=== PATIENT | male | born 1960 | race Caucasian/White ===

== ENCOUNTER → 2020-03-15 12:20 | Outpatient (BNVA) | payer OTHER, SELFPAY | PROVIDERS: Visit Provider Nurse Practitioner Family | DX: I10 Essential (primary) hypertension (principal) | CPT/HCPCS: 80053; 80061; 82607; 85025; G0103 ==

== ENCOUNTER → 2020-08-08 08:51 | Outpatient (BNVA) | payer OTHER, SELFPAY | PROVIDERS: Visit Provider Nurse Practitioner Family | DX: M25.511 Pain in right shoulder (principal) | CPT/HCPCS: 73030 ==

== ENCOUNTER 2020-08-21 08:18 | Outpatient (CLI) | payer OTHER, SELFPAY ==
--- NOTE | 2020-08-21 08:38 | MR_ITS ---
WS: [id number] MRI RIGHT SHOULDER HISTORY: M25.511 Pain in right shoulder COMPARISON: 08/08/2020 radiographs. TECHNIQUE: Multiplanar sequences of the shoulder joint are submitted. Moderate AC joint arthritis. Narrowing of the AC joint with osteophytes extending superior and inferi or from the joint. Increased soft tissue at the AC joint. Small amount of fluid in the subacromial an d subdeltoid bursa. 4 mm osteophyte along the inferior lateral surface of the acromion with significa nt encroachment upon the supraspinatus muscle and tendon. Moderate amount of edema in the posterior, superior lateral humeral head. No definite fracture is edgard ntified. There is significant loss of cartilage over the humeral head. Humeral head is moderately hig h riding from the glenoid. There is marked narrowing of the acromial humeral space. Partial tear along the articular surface of the supraspinatus tendon. A very small amount of the tendon remains. Infraspinatus tendon is intact. There is significant tendinopathy within the infraspinatus and supraspinatus tendons. Marked thickeni ng over the distal 3 to 4 cm of each tendon. The distal subscapularis tendon appears to be completely torn and retracted slightly. There is mild waviness of the subscapularis tendon and narrowing of the coracohumeral interval. Biceps tendon is torn and dislocated. No biceps tendon at the bicipital groo ve. There is a large amount of fluid surrounding the humeral head. Middle glenohumeral ligament is no t identified and probably torn and retracted. Anterior superior labrum is small caliber with increase d T2 signal. MR/MR shoulder RT wo con* [id number] IMPRESSION: 1. Large effusion surrounding the humeral head with marrow edema in the road monkey ior lateral humeral head. No definite fracture. 2. Moderate loss of cartilage at the glenohumeral joint and surrounding the hu meral head with osteophytes from chronic osteoarthritis. 3. Partial tear supraspinatus tendon over the humeral head involving the artic ular surface. There is an additional complete tear with retraction of the subsc apularis tendon. 4. Marked tendinopathy in the distal supraspinatus and infraspinatus tendons. 5. Torn and probably dislocated biceps tendon. 6. Middle glenohumeral ligament is not identified in its normal position there fore probably torn and retracted. 7. Marked narrowing of the coracohumeral and acromial humeral spaces. 8. Moderate AC joint arthritis.
== END 2020-08-21 08:19 | disposition home or self-care (01) ==
LOC: RADWPI 08:24
PROVIDERS: PCP Nurse Practitioner Family; Visit Provider Nurse Practitioner Family
DX: M25.411 Effusion, right shoulder (principal); M75.111 Incomplete rotator cuff tear or rupture of right shoulder, not specified as traumatic; S46.211A Strain of muscle, fascia and tendon of other parts of biceps, right arm, initial encounter; X58.XXXA Exposure to other specified factors, initial encounter; M13.811 Other specified arthritis, right shoulder
CPT/HCPCS: 73221

== ENCOUNTER 2020-09-11 06:00 | Outpatient (RCR) | payer OTHER, SELFPAY | END 2020-09-28 23:59 | disposition home or self-care (01) | LOC: TPT 06:00 | PROVIDERS: PCP Nurse Practitioner Family; Referring Provider Orthopaedic Surgery; Visit Provider Orthopaedic Surgery | DX: M75.101 Unspecified rotator cuff tear or rupture of right shoulder, not specified as traumatic (principal) | CPT/HCPCS: 97110; 97140; 97161 ==

== ENCOUNTER 2020-09-29 06:00 | Outpatient (RCR) | payer OTHER, SELFPAY | END 2020-10-28 23:59 | disposition home or self-care (01) | LOC: TPT 06:00 | PROVIDERS: PCP Nurse Practitioner Family; Referring Provider Orthopaedic Surgery; Visit Provider Orthopaedic Surgery | DX: M75.101 Unspecified rotator cuff tear or rupture of right shoulder, not specified as traumatic (principal) | CPT/HCPCS: 97110 ==

== ENCOUNTER → 2021-09-23 14:41 | Outpatient (BNVA) | payer OTHER, SELFPAY | PROVIDERS: PCP Nurse Practitioner Family; Visit Provider Nurse Practitioner Family | DX: R05.9 Cough, unspecified (principal); J98.8 Other specified respiratory disorders; R06.02 Shortness of breath; G62.9 Polyneuropathy, unspecified; I10 Essential (primary) hypertension; R91.8 Other nonspecific abnormal finding of lung field | CPT/HCPCS: 71046; 80053; 80061; 85025 ==

== ENCOUNTER 2021-11-11 12:22 | Outpatient (CLI) | payer OTHER, SELFPAY ==
[2021-11-11 12:57] VITALS: BMI 24.3
--- NOTE | 2021-11-11 12:58 | ECG_ITS ---
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 Interpretive Statements NAME OF STUDY: TREADMILL STRESS ECHOCARDIOGRAM INDICATION: Abnormal stress test, PROCEDURE: The baseline electrocardiogram showed normal sinus rhythm with a poor R wave progression. At the baseline, the patient's blood pressure was 176/98 mm Hg with a heart rate of 67. The patient exercised for 6 minutes and 6 seconds on a standard Ralph protocol. Patient attained a maximum heart rate of 143 beats per minute(90% of the maximum predicted heart rate) with a blood pressure at the peak exercise of mm Hg. The EKG at the peak exercise revealed nonspecific ST T changes and exercise-induced PVCs. Patient did [not have any chest pain with exercise the echocardiographic pictures were taken at the baseline, immediate post exercise and during the recovery phase, at the standard views. During the recovery phase, there were no new changes. Blood pressure at the end of the recovery phase was 163/95 mm Hg with a heart rate of 81 per minute. CONCLUSION: 1. No significant EKG changes with the treadmill exercise 2. No exercise-induced chest pain or cardiac arrhythmia 3. Impaired exercise tolerance, attained a maximum of 7.0 METs 4. Echocardiographic pictures were taken at the standard views; see separate report. Electronically Signed On 11-14-2021 1:52:16 ASSISTANT SERVICE MANAGER by Pilo Ruth M.D. [id number]
--- NOTE | 2021-11-11 13:30 | USCV_ITS ---
Stress Echo Sanjeev Lou Age: 61 Gender: M : 1960 Exam Date: 11/11/2021 13:15 Ordering Phys: Pilo Ruth MD ([email or web address]) Technologist: Jerri Machado Exam Location: [facility] [place] Indication: abnormal stress test/htn Rhythm: Sinus Patient History: abnormal ekg/htn Cardiac Medications: Medications in past 24 hours: lisinopril Contrast: Stress Results Protocol: Ralph Total dose(mL): Exercise Duration (min:sec): 6:06 METS: 7 Resting HR: 67 Resting BP: 176 / 96 Peak HR: 143 Peak BP: 214 / 124 Max Predicted HR: 158 91 % Max Predicted HR Target HR: 134 Double Product: 18750 Stress Summary: The patient exhibited a hypertensive response with stress BP Response: Normal Reason for Termination: Test terminated after reaching target heart rate (85% max predicted), Maximal effort/unable to continue Cardiac Symptoms: None ECG Analysis Resting ECG: Please see separate report Stress ECG: Please see separate report Arrhythmia: Please see separate report MEASUREMENTS (Male/Female) Normal Values FINDINGS Baseline echocardiogram revealed normal LV size and ejection fraction of. Mild concentric left ventricular hypertrophy. No gross wall motion normalities. Normal left atrial size. With the peak exercise, there is good augmentation of all the segments with no exercise-induced wall motion normalities. During the recovery phase, the echocardiogram revealed no new changes. CONCLUSIONS Normal echocardiographic response to treadmill exercise. No significant coronary ischemia, based on the above findings. For the EKG response to exercise, please see separate report Dr Pilo Ruth MD [facility] (Electronically Signed) Final Date: 12 November 2021 21:26 S
[2021-11-11 13:38] VITALS: BP 163/95; PULSE 80
== END 2021-11-11 12:23 | disposition home or self-care (01) ==
LOC: CDL 12:23
PROVIDERS: PCP Nurse Practitioner Family; Visit Provider Internal Medicine Cardiovascular Disease
DX: R94.31 Abnormal electrocardiogram [ECG] [EKG] (principal); I10 Essential (primary) hypertension
CPT/HCPCS: 93017; 93350

== ENCOUNTER 2023-10-06 13:34 | Emergency (ER) | payer SELFPAY ==
--- NOTE | 2023-10-06 13:35 | XR_ITS ---
WS: [id number] Portable AP upright chest, 10/06/2023 Clinical Data: cp Comparison: 2 view chest, 09/23/2021 Findings: No nodules, masses or effusions are seen. The heart is normal. The pulmonary vascularity is not increased. No pneumonia or pneumothorax is seen. The aortic arch shows mild tortuosity. Impression: Atherosclerosis.
[2023-10-06 13:44] VITALS: BP 157/118; PULSE 96; RESP 17; TEMP 37.1; O2SAT 98; BMI 22.8
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
[2023-10-06 14:00] VITALS: BP 144/98; PULSE 80; O2SAT 99
[2023-10-06 14:36] LABS: Basophils # 0.1 10^3/uL (0.0-0.1); Basophils % 1.4 %; Eosinophils % 0.9 %; Hematocrit 44.5 % (37-53); Lymphocytes # 0.6 10^3/uL (0.8-4.8); Lymphocytes % 14.8 %; Mean Corpuscular Hemoglobin 32.5 pg (27-33); Mean Corpuscular Volume 90.4 fl (82-101); Monocytes # 0.3 10^3/uL (0.2-0.9); Monocytes % 7.7 %; Neutrophils # 3.22 10^3/uL (1.8-7.7); Neutrophils % 74.7 %; Nucleated Red Blood Cells % 0 %; Platelet Count 175 10^3/cmm (157-399); Red Blood Count 4.92 10^6/uL (3.85-5.65); Red Cell Distribution Width 13.2 % (12.1-15.1); White Blood Count 4.31 10^3/uL (3.29-11.43)
[2023-10-06 14:43] LABS: Alanine Aminotransferase 108 U/L (0-41); Alkaline Phosphatase 169 U/L (40-130); Aspartate Amino Transferase 171 U/L (0-40); Blood Urea Nitrogen 18 mg/dL (8-23); Calcium 8.8 mg/dL (8.5-10.5); Carbon Dioxide 30 mmol/L (22-29); Chloride 91 mmol/L (98-107); Globulin 2.7 g/dL (1.3-4.6); Glomerular Filtration Rate 43.7 mL/min (90-130); Glucose 142 mg/dL (65-115); Lipase 91 U/L (13-60); Magnesium 1.4 mg/dL (1.7-2.3); Osmolality Calculated 280 mOsm/kg (285-295); Sodium 133 mmol/L (136-145); Total Bilirubin 1.2 mg/dL (0.15-1.2); Total Protein 6.7 g/dL (6.6-8.7); Troponin(5th) Baseline 14 ng/L (0-15)
[2023-10-06] MEDS: sodium chloride 0.9% 1,000 ML 999 ML IV (14:43)
[2023-10-06] MEDS: LORazepam 2 mg/mL INJ 1 mL 1 MG IVP (14:43)
[2023-10-06 14:55] LABS: Bilirubin Urine 1+ (Negative); Blood Urine Neg (Negative); Glucose Urine UA Norm (Normal); Ketones Urine 1+ (Negative); Nitrate Urine Negative (Negative); Protein Urine Trace (Negative); Urine Appearance Clear (CLEAR); Urine Color Dark Yellow (Yellow); pH Urine 5 (5-7)
[2023-10-06 14:56] LABS: Add Urine Microscopic? YES; Leukocyte Esterase Urine Negative (Negative); Urobilinogen Urine 4 mg/dL (Negative)
[2023-10-06 15:06] LABS: Amorphous Sediment Urine TRACE /hpf; Bacteria Urine TRACE /hpf; Calcium Oxalate Crystals Urine 0-4 /hpf; Hyaline Casts Urine TOO NUMEROUS TO CNT /lpf; Mucus Urine 1+ /hpf; RBC Urine 0-4 /hpf (0-2); Squamous Epithelial Cell Urine RARE /hpf (0-5); WBC Urine 0-4 /hpf (0-5)
[2023-10-06 15:07] LABS: Add Urine Culture? No
[2023-10-06] MEDS: potassium chloride ER 20 mEq Tablet 40 MEQ PO (15:12)
[2023-10-06] MEDS: magnesium sulfate premix 2 GM/50 ML PIGGYBACK IV (15:14)
[2023-10-06 15:17] VITALS: BP 162/108; PULSE 78; O2SAT 99
--- NOTE | 2023-10-06 15:35 | ECG_ITS ---
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 Measurements Intervals [place] Rate: 80 P: 30 ID: [id number] QRS: -18 QRSD: 97 T: 51 QT: 400 QTc: 462 Interpretive Statements SINUS RHYTHM NONSPECIFIC T-WAVE ABNORMALITY Poor R wave progression No previous ECG available for comparison Electronically Signed On 10-07-2023 0:52:57 QUANTITATIVE RESEARCHER by Pilo Ruth M.D. [id number]
[2023-10-06 16:20] VITALS: BP 151/101; PULSE 80; O2SAT 100
[2023-10-06 16:34] LABS: Troponin 5 2HR 12.31 ng/L (0-15); Troponin 5 2HR Delta -1.69 ABS# (0-10)
== END 2023-10-06 16:39 | disposition home or self-care (01) ==
PROVIDERS: Emergency Medicine; Emergency Provider Nurse Practitioner Family; PCP Nurse Practitioner Family
DX: K85.20 Alcohol induced acute pancreatitis without necrosis or infection (principal); F10.10 Alcohol abuse, uncomplicated; E83.42 Hypomagnesemia; E86.0 Dehydration; I10 Essential (primary) hypertension; F17.210 Nicotine dependence, cigarettes, uncomplicated; J44.9 Chronic obstructive pulmonary disease, unspecified
CPT/HCPCS: 36415; 71045; 80053; 81001; 83690; 83735; 84484; 85025; 85610; 93005; 96365; 96375; 99285; J2060; J3475; J7030

== ENCOUNTER 2024-08-26 20:44 | Emergency (ER) | payer MEDICARE, MEDICAID, SELFPAY ==
--- NOTE | 2024-08-26 20:52 | XRR_ITS ---
PROCEDURE INFORMATION: Exam: XR Chest Exam date and time: 08/26/2024 9:14 PM Age: 64 years old Clinical indication: Other: Hemoptysis TECHNIQUE: Imaging protocol: Radiologic exam of the chest. Views: 1 view. COMPARISON: CR XR chest 1V portable [id number] 10/06/2023 2:44 PM FINDINGS: Lungs: Unremarkable. No consolidation. Pleural spaces: Unremarkable. No pleural effusion. No pneumothorax. Heart/Mediastinum: Unremarkable. No cardiomegaly. Bones/joints: Unremarkable. XR/XR chest 1V portable [id number] IMPRESSION: No acute findings.
[2024-08-26 20:56] VITALS: BP 195/95; PULSE 70; RESP 16; TEMP 36.8; O2SAT 97; BMI 22.9
[2024-08-26 21:14] LABS: Basophils # 0.1 10^3/uL (0.0-0.1); Basophils % 1.8 %; Eosinophils # 0.1 10^3/uL (0.0-0.8); Eosinophils % 2.3 %; Hematocrit 38.4 % (37-53); Lymphocytes # 1.3 10^3/uL (0.8-4.8); Lymphocytes % 29.3 %; Mean Corpuscular HGB Conc 33.3 g/dL (30-55); Mean Corpuscular Hemoglobin 33.2 pg (27-33); Mean Corpuscular Volume 99.7 fl (82-101); Mean Platelet Volume 9.3 fL (7.4-10.4); Monocytes # 0.5 10^3/uL (0.2-0.9); Monocytes % 12.3 %; Neutrophils # 2.38 10^3/uL (1.8-7.7); Neutrophils % 54.1 %; Nucleated Red Blood Cells % 0 %; Platelet Count 245 10^3/cmm (157-399); Red Blood Count 3.85 10^6/uL (3.85-5.65); Red Cell Distribution Width 15.5 % (12.1-15.1)
[2024-08-26 21:33] LABS: INR 0.96 (0.8-1.2)
[2024-08-26 21:38] LABS: Alanine Aminotransferase 33 U/L (0-41); Albumin Level 3.8 g/dL (3.5-5.2); Alkaline Phosphatase 110 U/L (40-130); Blood Urea Nitrogen 14 mg/dL (8-23); Calcium 8.9 mg/dL (8.5-10.5); Carbon Dioxide 25 mmol/L (22-29); Chloride 104 mmol/L (98-107); Glomerular Filtration Rate 84.7 mL/min (90-130); Glucose 93 mg/dL (65-115); Osmolality Calculated 286 mOsm/kg (285-295); Sodium 138 mmol/L (136-145); Total Bilirubin 0.3 mg/dL (0.15-1.2); Total Protein 6.8 g/dL (6.6-8.7)
[2024-08-26 21:46] LABS: Anion Gap 13.5 (5-19); Aspartate Amino Transferase 40 U/L (0-40); Potassium 4.5 mmol/L (3.5-5.1)
--- NOTE | 2024-08-26 22:10 | CTR_ITS ---
PROCEDURE INFORMATION: Exam: CT Neck With Contrast Exam date and time: 08/26/2024 10:24 PM Age: 64 years old Clinical indication: Dysphagia / difficulty swallowing and other: Coughing up blood, feels somethng in throat; Additional info: Coughing up blood, feeling of something in throat TECHNIQUE: Imaging protocol: Computed tomography of the neck with contrast. Radiation optimization: All CT scans at this facility use at least one of these dose optimization techniques: automated exposure control; mA and/or kV adjustment per patient size (includes targeted exams where dose is matched to clinical indication); or iterative reconstruction. Contrast material: OMNI 350; Contrast volume: 100 ml; Contrast route: INTRAVENOUS (IV); COMPARISON: CR (CHEST, ) 08/26/2024 9:14 PM RADIATION DOSE METRICS: Total DLP (mGy-cm): 288.4 FINDINGS: Salivary glands: Normal. Glands are normal in size. Teeth: Patient is edentulous. Pharynx: Unremarkable. No significant tonsillar enlargement. Prevertebral and retropharyngeal spaces: Unremarkable. Larynx: Unremarkable. Epiglottis is normal. Thyroid: 0.9 cm hypoattenuating nodule in the left thyroid. Trachea: Visualized trachea is unremarkable. Lungs: Visualized lung apices are clear. Lymph nodes: No distinct pathologically enlarged lymphadenopathy. Bones/joints: No acute osseous findings. Soft tissues: Visualized superficial soft tissues are within normal limits. CT/CT neck w con* [id number] IMPRESSION: No acute pathologic findings. COMMENTS: Consistent with the [employer]'s Incidental Findings Committee white paper (J Am Rhonda Radiol 2015): In patients aged 35 years and older with an incidental thyroid nodule equal to or greater than 1.[address], MRI or extrathyroidal US, further evaluation with dedicated thyroid US is recommended for patients with normal life expectancy and without comorbidities. For smaller nodules without suspicious features, no further evaluation or follow up is recommended.
[2024-08-26] MEDS: iohexol 350 mg/mL 500 mL Btl (per mL) IV (22:29)
[2024-08-27] MEDS: amoxicillin-clav 875-125 mg Tablet 1 TAB PO (00:54)
[2024-08-27] MEDS: guaiFENesin-codeine UDC 10 mL PO (00:54)
[2024-08-27 01:01] VITALS: BP 212/118; PULSE 75; O2SAT 97
[2024-08-27 01:03] VITALS: BP 202/110
[2024-08-27] MEDS: lisinopril 10 mg Tablet PO (01:03)
[2024-08-27] MEDS: cloNIDine 0.1 mg Tablet 0.2 MG PO (01:03)
[2024-08-27 01:07] VITALS: BP 202/110; PULSE 75; O2SAT 97
--- NOTE | 2024-08-27 07:21 | ED_ITS ---
HPI - URI/Sore Throat 2 General: Chief Complaint: Upper Respiratory Infection Stated Complaint: Coughing Up Blood Time Seen by Provider: 08/26/24 21:08 History of Present Illness: 64-year-old male smoker with a history o f hemoptysis. He notes that a few hours prior to arrival, he began to cough up clots of blood regularly. He feels like the blood is dripping in the back of his throat, and he has a slimy sensation in that area. He is not short of breath. He has not had an increased cough or fever otherwise. He has no chest discomfort. He has not noticed his nose bleeding. Related Data Previous Rx's Medication Instructions Recorded lisinopril 10 mg tablet 10 mg PO DAILY #30 tabs 10/06/23 trazodone 50 mg tablet 50 mg PO DAILY PRN insomnia #30 10/06/23 tabs amoxicillin 875 mg-potassium 1 tab PO BID #20 tabs 08/27/24 clavulanate 125 mg tablet btcqcimblbslayn-dlwkllufxws-pmqexpv 5 ml PO Q6H PRN cough #100 mL 08/27/24 1.3 mg-10 mg-6.3 mg/5 mL oral liqd Allergies Allergy/AdvReac Type Severity Reaction Status Date / Time No Known Allergies Allergy Verified 10/06/23 16:21 PFSH ED 2 PFSH: Medical History Hypertension Family History Denies family history of Diabetes CAD (coronary artery disease) Clotting disorder Dementia Chronic kidney disease (CKD) Suicide Anesthesia complication Bleeding disorder Lung disease Cancer Stroke Social History Smoking and tobacco/nicotine status: current every day tobacco/nicotine user cigarettes Packs smoked per day: 0.5 Years cigarettes smoked: 40 Second hand smoke exposure: Yes Alcohol intake: current Substance/Drug Use: never Lives independently: No Household members: family Marital status: Single Current occupational status: employed Current occupation: [employer] Physical Exam 2 Const: COMMON NORMALS: no acute distress GENERAL APPEARANCE: cooperative; not ill appearing and not frail appearing HENMT: COMMON NORMALS: normocephalic, atraumatic and Normal external nose present HEAD & SCALP: normocephalic and atraumatic FACE & SINUS: normal facial exam and face symmetric NOSE: Normal external nose present and Epistaxis present (clots present in right nare. nasal floor ulcerated appearance. ) MOUTH: Normal oral and palatal mucosa present THROAT: p osterior oropharynx normal Eye: COMMON NORMALS: Equal, round and reactive pupils present and EOMs intact bilaterally PUPIL: Yes Equal, round and reactive pupils present Neck/C-Spine: GENERAL: Yes trachea midline Chest: CHEST: Yes Symmetrical chest wall rise Resp: COMMON NORMALS: normal respiratory effort, No retractions, No use of accessory muscles and clear to auscultation bilaterally AUSCULTATION: clear to auscultation bilaterally Cardio: COMMON NORMALS: regular rate and regular rhythm RATE: regular rate RHYTHM: regular rhythm GI: COMMON NORMALS: Normal to inspection, nondistended, normoactive bowel sounds present Extremity: COMMON NORMALS: no pedal edema Neuro: RADHA COMA SCALE: document GCS findings [place] coma scale eye opening: Spontaneous Radha coma scale verbal response: Orientated [place] coma scale motor response: Obey commands [place] coma scale total score: 15 S ENSORY EXAM: Yes extremities (intact) Psych: COMMON NORMALS: speech normal SPEECH: Yes normal speech Skin: COMMON NORMALS: no rashes or lesions noted GENERAL SKIN EXAM: no rashes or lesions noted Course 2 Vital Signs: Vital signs: Vital Signs Temperature 98.3 F 08/26/24 20:56 Pulse Rate 75 08/27/24 01:07 Respiratory Rate 16 08/26/24 20:56 Blood Pressure 202/110 08/27/24 01:07 Pulse Oximetry 97 08/27/24 01:07 Oxygen Delivery Me thod Room Air 08/26/24 20:56 MDM - URI/Sore Throat Medical Decision Making This patient has coughed up some small clots here. He has evidence of epistaxis on the right. No other evidence of bleeding. His chest x-ray is normal. CT of the neck with contrast does not reveal source. This is small amounts of blood. His platelet count is normal. His hemoglobin is 13. no hypoxia, tachycardia, chest discomfort to indicate significant PE. He will be allowed home. Referral to ENT is given, with instructions to call on Wednesday for an appointment this week for further investigation as needed. Lab Data 08/26/24 21:09 08/26/24 21:09 Radiology Impressions Chest X-Ray 08/26/24 20:52 IMPRESSION: No acute findings. Neck CT 08/26/24 22:10 IMPRESSION: No acute pathologic findings. COMMENTS: Consistent with the [employer]'s Incidental Findings Committee white paper (J Am Rhonda Radiol 2015): In patients aged 35 years and older with an incidental thyroid nodule equal to or greater than 1.[address], MRI or extrathyroidal US, further evaluation with dedicated thyroid US is recommended for patients with normal life expectancy and without comorbidities. For smaller nodules without suspicious features, no further evaluation or follow up is recommended. Laboratory Results WBC 4.40 10^3/uL (3.29-11.43) 08/26/24 21:09 RBC 3.85 10^6/uL (3.85-5.65) 08/26/24 21:09 Hgb 12.80 g/dL (11.27-16.99) 08/26/24 21:09 Hct 38.4 % (37-53) 08/26/24 21:09 MCV 99.7 fl (82-101) 08/26/24 21:09 MCH 33.2 pg (27-33) H 08/26/24 21:09 MCHC 33.3 g/dL (30-55) 08/26/24 21:09 RDW 15.5 % (12.1-15.1) H 08/26/24 21:09 Plt Count 245 10^3/cmm (157-399) 08/26/24 21:09 MPV 9.3 fL (7.4-10.4) 08/26/24 21:09 Neut % (Auto) 54.1 % 08/26/24 21:09 Lymph % (Auto) 29.3 % 08/26/24 21:09 [place] % (Auto) 12.3 % 08/26/24 21:09 Eos % (Auto) 2.3 % 08/26/24 21:09 Baso % (Auto) 1.8 % 08/26/24 21:09 Neut # (Auto) 2.38 10^3/uL (1.8-7.7) 08/26/24 21:09 Lymph # (Auto) 1.3 10^3/uL (0.8-4.8) 08/26/24 21:09 [place] # (Auto) 0.5 10^3/uL (0.2-0.9) 08/26/24 21:09 Eos # (Auto) 0.1 10^3/uL (0.0-0.8) 08/26/24 21:09 Baso # (Auto) 0.1 10^3/uL (0.0-0.1) 08/26/24 21:09 Nucleated RBC % (auto) 0 % 08/26/24 21:09 Nucleated RBCs # 0.0 /100WBC 08/26/24 21:09 PT 13.00 SECONDS (12.1-14.9) 08/26/24 21:09 INR 0.96 (0.8-1.2) 08/26/24 21:09 Sodium 138 mmol/L (136-145) 08/26/24 21:09 Potassium 4.5 mmol/L (3.5-5.1) 08/26/24 21:09 Chloride 104 mmol/L (98-107) 08/26/24 21:09 Carbon Dioxide 25 mmol/L (22-29) 08/26/24 21:09 Anion Gap 13.5 (5-19) 08/26/24 21:09 BUN 14 mg/dL (8-23) 08/26/24 21:09 Creatinine 0.9 mg/dL (0.7-1.2) 08/26/24 21:09 GFR Calculation 84.7 mL/min (90-130) L 08/26/24 21:09 Glucose 93 mg/dL (65-115) 08/26/24 21:09 Calculated Osmolality 286 mOsm/kg (285-295) 08/26/24 21:09 Calcium 8.9 mg/dL (8.5-10.5) 08/26/24 21:09 Total Bilirubin 0.3 mg/dL (0.15-1.2) 08/26/24 21:09 AST 40 U/L (0-40) 08/26/24 21:09 ALT 33 U/L (0-41) 08/26/24 21:09 Alkaline Phosphatase 110 U/L (40-130) 08/26/24 21:09 Total Protein 6.8 g/dL (6.6-8.7) 08/26/24 21:09 Albumin 3.8 g/dL (3.5-5.2) 08/26/24 21:09 Globulin 3.0 g/dL (1.3-4.6) 08/26/24 21:09 All radiology interpretation(s) finalized by discharge Discharge Plan Discharge Patient Disposition: Home Clinical Impression: Hemoptysis, Epistaxis Condition: Stable Prescriptions: New rmiayrnn-baainaovspw-axqrlma 1.3-10-6.3 mg/5 mL liquid 5 ml PO Q6H PRN (Reason: cough) Qty: 100 0RF amoxicillin-pot clavulanate 875-125 mg tablet 1 tab PO BID Qty: 20 0RF No Action lisinopril 10 mg tablet 10 mg PO DAILY Qty: 30 2RF trazodone 50 mg tablet 50 mg PO DAILY PRN (Reason: insomnia) Qty: 30 0RF Discharge Orders: Discharge ED (Routine); Ordered 08/27/24 Ordered By: Macario Barnett Referrals: Magdaleno Henry MD [Physician] - 1-3 days Deidre Powell FNP [Primary Care Provider] - 4-7 days Patient Instructions: Hemoptysis, Nosebleed (ED), Opioid Safety, Pain Management Activity Restrictions/Additional Instructions: Antibiotics as directed. Return for worsening bleeding despite treatment, development of fever, shortness of breath, other concerning symptoms. Call the ENT clinic Wednesday morning. Let them know you were seen here. Make an appointment for follow-up there. See your doctor next week. 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
== END 2024-08-27 01:11 | disposition home or self-care (01) ==
PROVIDERS: Emergency Medicine; Emergency Provider Emergency Medicine; PCP Nurse Practitioner Family
DX: R04.2 Hemoptysis (principal); R04.0 Epistaxis; I10 Essential (primary) hypertension; F17.210 Nicotine dependence, cigarettes, uncomplicated
CPT/HCPCS: 36415; 70491; 71045; 80053; 85025; 85610; 99285